=== PATIENT | female | born 1975 | race Caucasian/White ===

== ENCOUNTER 2019-06-19 22:49 | Emergency (ER) | payer OTHER ==
[~2019-06-19] VITALS: Ht 172.7 cm; Wt 64.9 kg
[2019-06-19] MEDS ORDERED: LEVO125T8 PO (23:05)
--- NOTE | 2019-06-19 23:15 | NUR ---
DR ÁLVAREZ IS AT BEDSIDE TO SEE PATIENT MSE
--- NOTE | 2019-06-19 23:15 | NUR ---
Nohemy hoang in [facility] - 06/19/19 at [address] ÁLVAREZ IS AT BEDSIDE TO SEE PATIENT
--- NOTE | 2019-06-19 23:22 | NUR ---
RAPID INFLUENZA OBTAINED AND SENT TO THE LAB
--- NOTE | 2019-06-20 00:03 | NUR ---
Patient discharged to home in stable conditon. Written and verbal after care instructions given. Patient verbalizes understanding of instructions. PATIENT IS AWAKE ORIENTED AMBULATORY , CAN DRIVE HOME ALONE , WENT HOME WITH BELONGINGS , VS STABLE , INSTRUCTIONS GIVEN FOR SEVERE SIGNS AND SYMPTMS TOREPORT
[2019-06-20 00:05] VITALS: BP 137/97
== END 2019-06-20 00:05 | disposition home or self-care (01) ==
LOC: ER 22:56
DX: B34.9 Viral infection, unspecified (principal); E03.9 Hypothyroidism, unspecified; Z79.899 Other long term (current) drug therapy
CPT/HCPCS: 87400; A4663